=== PATIENT | female | born 1945 | race Caucasian/White ===

== ENCOUNTER 2019-01-31 12:39 | Emergency (ER) | payer MEDICARE, OTHER ==
[~2019-01-31 12:39] MED LIST: Iopamidol 370 76% 125 ML VIAL FS ONE; Sodium Chloride 0.9% 100 ML BAG ONE
[2019-01-31] MEDS ORDERED: Meclizine HCl 25 MG TAB ONE (13:13)
[2019-01-31] MEDS ORDERED: Ondansetron PF 4 MG/2 ML Vial ONE (13:13)
--- NOTE | 2019-01-31 13:15 | RAD ---
EXAM: Portable chest PROVIDED CLINICAL HISTORY: Chest pain COMPARISON: None FINDINGS: Cardiac and mediastinal silhouette is within normal limits. No focal consolidation, pleural fluid or pneumothorax evident. IMPRESSION: No evidence for an acute cardiopulmonary process.
[2019-01-31 13:43] LABS: #Basophils 0.1 thou/uL (0.0-0.2); #Eosinphils 0.1 thou/uL (0.0-0.7); #Monocytes 0.5 thou/uL (0.11-0.59); #Neutrophils 3.9 thou/uL (1.40-6.50); %Basophils 1.2 % (0.0-1.0); %Eosinophils 1.2 % (0.0-10.0); %Lymphocytes 30.3 % (21.0-51.0); %Monocytes 8.3 % (0.0-10.0); Hemoglobin 11.9 g/dL (12.0-16.0); Mean Corpuscular HGB CONC 34.2 g/dL (32.0-36.0); Mean Corpuscular Volume 93.4 fL (78.0-98.0); Mean Platelet Volume 5.6 fL (7.4-10.4); Platelet Count 274 thou/uL (130-400); RBC Distribution Width 11.2 % (11.5-14.5); Red Blood Cell (RBC) Count 3.74 mill/uL (4.20-5.40); White Blood Cell (WBC) Count 6.6 thou/uL (4.8-10.8)
[2019-01-31 14:02] LABS: ALT (SGPT) 24 U/L (8-55); AST (SGOT) 19 U/L (5-34); Albumin 4.4 g/dL (3.4-4.8); Alkaline Phosphatase 101 U/L (40-150); Anion Gap 19 mmol/L (10-20); BUN (Urea Nitrogen) 17 mg/dL (9.8-20.1); Bilirubin, Total 0.3 mg/dL (0.2-1.2); CK (CPK) 59 U/L (29-168); Calc. Creatinine Clearance 0 mL/min (70-130); Calcium 9.7 mg/dL (7.8-10.44); Carbon Dioxide 20 mmol/L (23-31); Chloride 107 mmol/L (98-107); Estimated GFR-MDRD 55; Globulin 2.6 g/dL (2.4-3.5); Glucose 144 mg/dL (83-110); Lipase 46 U/L (8-78); Potassium 4.2 mmol/L (3.5-5.1); Sodium 142 mmol/L (136-145)
[2019-01-31] MEDS ORDERED: Sodium Chloride 0.9% 1,000 ML ONE ×2 (14:12→15:38)
[2019-01-31 15:17] LABS: Bilirubin Negative (Negative); Blood, Urine Trace (Negative); Clarity Cloudy (Clear); Glucose, Urine (Dipstick) Negative (Negative); Leukocyte Small (Negative); Nitrite Negative (Negative); Protein, Urine (Dipstick) Negative (Neg-Trace); Urobilinogen 0.2 mg/dL (Less than 2)
[2019-01-31 15:18] LABS: RBC/HPF 0-3 HPF (0-3)
[2019-01-31 15:19] LABS: Bacteria/HPF 4+ HPF (None Seen); Squamous Epithelial 0-3 HPF (0-3)
[2019-01-31] MEDS ORDERED: cefTRIAXone\\ROCEPHIN 1 GM VIAL ONE (15:38)
[2019-01-31] MEDS ORDERED: Sodium Chloride 0.9% 100 ML ONE (15:38)
--- NOTE | 2019-01-31 15:56 | CT ---
EXAM: CT pulmonary angiogram with IV contrast and 3-D MIP reconstructions PROVIDED CLINICAL HISTORY: Chest pain COMPARISON: None FINDINGS: There is no evidence for central or segmental pulmonary embolus. The lungs are free of significant op acity. No pleural fluid or pneumothorax apparent. No evidence for thoracic lymph node enlargement. The airway appears patent and of normal caliber. The osseous structures demonstrate no concerning lyt ic or blastic lesions. Partially visualized moderate gallbladder distention with heterogeneity in the region of the gallbladder neck that may reflect stones. IMPRESSION: 1. No evidence for central or segmental pulmonary embolus. 2. Moderate gallbladder distention with possible gallstones in the neck. Consider gallbladder ultraso und as indicated.
--- NOTE | 2019-02-02 07:35 | CT ---
Exam: CT brain PROVIDED CLINICAL HISTORY: Dizziness COMPARISON: None FINDINGS: The ventricular system is normal in size and morphology. No evidence for intracranial hemorrhage or mass effect. The extracranial soft tissues and osseous structures demonstrate no evidence for an acute abnormality. IMPRESSION: No evidence for intracranial hemorrhage or mass effect.
== END 2019-01-31 17:20 | disposition short-term general hospital (02) ==
LOC: MADERS 12:39
DX: R55 Syncope and collapse (principal); N39.0 Urinary tract infection, site not specified; I25.10 Atherosclerotic heart disease of native coronary artery without angina pectoris; E78.5 Hyperlipidemia, unspecified; I10 Essential (primary) hypertension; Z79.82 Long term (current) use of aspirin; Z79.899 Other long term (current) drug therapy
CPT/HCPCS: 36415; 70450; 71045; 71275; 80053; 81003; 81015; 82550; 83605; 83690; 84484; 85025; 85379; 87040; 93005; 96361; 96365; 96375; J0696; J2405; J3490; J7050; J8597; Q9967